=== PATIENT | female | born 1950 | race Asian ===

== ENCOUNTER → 2023-05-14 | Outpatient (CLI) | payer MEDICARE, OTHER ==
[~2023-05-14] MED LIST: ATOR10TA PO; CIPR-278 PO; GLIP5TAB11 PO; METF-444 PO; METR500 PO; OMEP10 PO
== END | disposition home or self-care (01) ==
LOC: RADMN 12:15
PROVIDERS: ATTEND Family Medicine
DX: J18.9 Pneumonia, unspecified organism (principal); I51.7 Cardiomegaly; M47.814 Spondylosis without myelopathy or radiculopathy, thoracic region
CPT/HCPCS: 71046

== ENCOUNTER 2023-07-15 20:18 | Emergency (ER) | payer MEDICARE, OTHER ==
[~2023-07-15] VITALS: Ht 162.6 cm; Wt 65.0 kg
[2023-07-15 20:31] VITALS: TEMP 98
[2023-07-15 22:00] VITALS: BP 175/69; PULSE 51; RESP 17
[2023-07-15] MEDS ORDERED: NEOMYCIN/POLYMYXIN B/HYDROCORT 10 ML OTIC SUSPENSION AS ONE (22:30)
== END 2023-07-15 22:59 | disposition home or self-care (01) ==
LOC: EMS 20:20
DX: S01.312A Laceration without foreign body of left ear, initial encounter (principal); E11.9 Type 2 diabetes mellitus without complications; E78.00 Pure hypercholesterolemia, unspecified; I10 Essential (primary) hypertension; X58.XXXA Exposure to other specified factors, initial encounter; Y93.89 Activity, other specified; Y92.89 Other specified places as the place of occurrence of the external cause; Y99.8 Other external cause status
CPT/HCPCS: 99283

== ENCOUNTER 2023-10-16 06:46 | Emergency (ER) | payer MEDICARE, OTHER ==
[~2023-10-16] VITALS: Ht 160 cm; Wt 53.6 kg
[~2023-10-16 06:46] MED LIST changes: -GLIP5TAB11 PO; +GLIP5TAB15 PO
[2023-10-16 06:54] VITALS: TEMP 98.3
[2023-10-16 07:17] LABS: GLUCOMETER DEV NAME(LOC) ERT.5; GLUCOSE,POINT OF CARE 155 MG/DL (70-110)
[2023-10-16] MEDS ORDERED: SODIUM CHLORIDE 0.9% 1,000 ML IV ONE (07:30)
[2023-10-16 07:44] LABS: BASOPHILS % (AUTO) 1.1 % (0.0-2.0); EOSINOPHILS % (AUTO) 2.3 % (1.0-6.0); HEMATOCRIT 42.3 % (36-46); HEMOGLOBIN 14.1 g/dL (12.0-16.0); LYMPHOCYTES # (AUTO) 1.9 K/uL (1.0-4.8); MEAN CORPUSCULAR HGB CONC 33.5 G/dL (31.0-37.0); MEAN CORPUSCULAR VOLUME 90 fL (80-100); MONOCYTES # (AUTO) 0.6 K/uL (0.1-1.0); MONOCYTES % (AUTO) 8.8 % (2.0-9.0); NEUTROPHILS # (AUTO) 4.5 K/uL (1.8-7.7); NEUTROPHILS % (AUTO) 61.8 % (40.0-70.0); PLATELET COUNT (AUTO) 102 K/uL (150-450); RED BLOOD CELL COUNT(AUTO) 4.72 MIL/uL (4.00-5.20); RED CELL DISTRIBUTION WIDTH 15.4 % (11.5-14.5); WHITE BLOOD COUNT (AUTO) 7.3 K/uL (4.5-11.0)
[2023-10-16 07:59] LABS: TROPONIN I-HIGH SENSITIVITY 14 ng/L (<51)
[2023-10-16 08:00] LABS: CALCIUM, TOTAL 9.9 mg/dL (8.8-10.5); CREATININE 1.06 mg/dL (0.60-1.30); POTASSIUM 3.7 mmol/L (3.5-5.1)
[2023-10-16 08:05] LABS: ALBUMIN 3.5 g/dL (3.4-5.0); TOTAL PROTEIN, SERUM 8.8 g/dL (6.4-8.2)
[2023-10-16] MEDS ORDERED: FURO40TA5 PO (08:12)
[2023-10-16] MEDS ORDERED: ISOS30TA92 PO (08:12)
[2023-10-16] MEDS ORDERED: APIX5TAB PO (08:12)
[2023-10-16] MEDS ORDERED: DULA0.75 SQ (08:12)
[2023-10-16] MEDS ORDERED: LORA10TA7 PO (08:12)
[2023-10-16] MEDS ORDERED: MONT-40 PO (08:12)
[2023-10-16] MEDS ORDERED: NEED1DIS84 SQ (08:12)
[2023-10-16] MEDS ORDERED: INSU3INS3 SQ (08:12)
[2023-10-16] MEDS ORDERED: CIPR500T10 PO (08:12)
[2023-10-16] MEDS ORDERED: ATOR20TA65 PO (08:12)
[2023-10-16 08:13] LABS: LACTIC ACID 1.4 mmol/L (0.4-2.0)
[2023-10-16] MEDS ORDERED: SODIUM CHLORIDE 0.9% 100 ML ONE (08:19)
[2023-10-16] MEDS ORDERED: IOHEXOL 350 MG/ML 100 ML VIAL ONE ×2 (08:19)
[2023-10-16] MEDS ORDERED: MORPHINE SULFATE 2 MG/ML SYRINGE IVP ONE (10:00)
[2023-10-16] MEDS ORDERED: CefTRIAXone 1 GM/DEXTROSE 50 ML IV ONE (10:00)
[2023-10-16 10:22] LABS: APPEARANCE,URINE HAZY (CLEAR); BILIRUBIN,URINE NEGATIVE (NEGATIVE); COLOR,URINE LIGHT ORANGE (YELLOW); GLUCOSE, URINE (UA) NEGATIVE (NEGATIVE); KETONES,URINE NEGATIVE (NEGATIVE); LEUKOCYTE ESTERASE ,URINE LARGE (NEGATIVE); NITRATE,URINE NEGATIVE (NEGATIVE); OCCULT BLOOD,URINE LARGE (NEGATIVE); PH,URINE 6.5 (5.0-8.0); PROTEIN,URINE 100-200,SEE CONFIRM mg/dL (NEGATIVE); SPECIFIC GRAVITIY, URINE 1.026 (1.003-1.030); UROBILINOGEN,URINE <=1.0 mg/dL (<=1.0)
[2023-10-16 10:35] LABS: BACTERIA,URINE Few /HPF (None Seen); RBC,URINE 51-100 /HPF (0-2); SQUAMOUS EPITHELIAL CELL,UR Few /LPF (None Seen); SULFOSALICYLIC ACID,URINE 2+ (Negative)
[2023-10-16 12:17] VITALS: BP 170/90; PULSE 60; RESP 18
[2023-10-16] MEDS ORDERED: CEPH-558 PO ×2 (12:27→13:36)
== END 2023-10-16 13:07 | disposition home or self-care (01) ==
LOC: EMS 06:46
DX: N39.0 Urinary tract infection, site not specified (principal); R10.2 Pelvic and perineal pain; E11.9 Type 2 diabetes mellitus without complications; E78.00 Pure hypercholesterolemia, unspecified; I10 Essential (primary) hypertension
CPT/HCPCS: 99285; 74177; 96365; 96361; 80053; 81001; 82962; 83605; 83690; 84484; 85025; 87040; 36415; 87086; 87186; 74022; 93005; J0696; Q9967; J7030; J7050; 81002; J2270

== ENCOUNTER 2024-04-04 21:29 | Emergency (ER) | payer MEDICARE, OTHER ==
[~2024-04-04 21:29] MED LIST changes: +APIX5TAB PO; -ATOR10TA PO; +ATOR20TA65 PO; +CEPH-558 PO; -CIPR-278 PO; +CIPR500T10 PO; +DULA0.75 SQ; +FURO40TA5 PO; -GLIP5TAB15 PO; +INSU3INS3 SQ; +ISOS30TA92 PO; +LORA10TA7 PO; -METF-444 PO; -METR500 PO; +MONT-40 PO; +NEED1DIS84 SQ; -OMEP10 PO
== END 2024-04-04 21:40 | disposition left against medical advice (07) ==
LOC: EMS 21:29
DX: R55 Syncope and collapse (principal); E11.9 Type 2 diabetes mellitus without complications; K21.9 Gastro-esophageal reflux disease without esophagitis; I10 Essential (primary) hypertension; Z79.4 Long term (current) use of insulin
CPT/HCPCS: 99283; Z7502

== ENCOUNTER 2025-04-17 21:27 | Emergency (ER) | payer MEDICARE, OTHER ==
[~2025-04-17] VITALS: Ht 160 cm; Wt 51.8 kg
[~2025-04-17 21:27] MED LIST changes: +CIPR-515 PO; -CIPR500T10 PO
[2025-04-17 21:28] VITALS: BP 128/79; PULSE 129; RESP 28; TEMP 97.3; O2SAT 95
== END 2025-04-17 22:20 | disposition left against medical advice (07) ==
LOC: EMS 21:27
DX: I10 Essential (primary) hypertension (principal); R07.9 Chest pain, unspecified; Z53.21 Procedure and treatment not carried out due to patient leaving prior to being seen by health care provider
CPT/HCPCS: 82962; 93005; 99281